=== PATIENT | female | born 1970 | race African-American/Black ===

== ENCOUNTER 2021-01-12 05:49 | Emergency (ER) | payer OTHER ==
[~2021-01-12] VITALS: Ht 167.6 cm; Wt 99.7 kg
--- NOTE | 2021-01-12 05:58 | NUR ---
PT TO JAMES SANTIAGO TIME EXPLAINED.
[2021-01-12 06:32] VITALS: BP 120/61
== END 2021-01-12 06:52 | disposition home or self-care (01) ==
LOC: ED 06:43
DX: K64.8 Other hemorrhoids (principal)
CPT/HCPCS: 99282